=== PATIENT | female | born 1990 | race Caucasian/White ===

== ENCOUNTER 2018-08-17 05:48 | Day surgery (SDC) | payer BC ==
--- NOTE | 2018-08-16 11:04 | Pre-Procedure Note/Attestation ---
Pre-Procedure Note/Attestation Complete Prior to Procedure Planned Procedure: bilateral Procedure Narrative: 1. Bilateral tonsillectomy 2. Indirect mirror exam 3. Possible adenoidectomy Indications for Procedure Pre-Operative Diagnosis: Recurrent tonsillitis. Attestation I attest that I discussed the nature of the procedure; its benefits; risks and complications; and alternatives (and the risks and benefits of such alternatives ), prior to the procedure, with the patient (or the patient's legal food service sales representatives). I attest that, if there was a reasonable possibility of needing a blood transfusion, the patient (or the patient's legal food service sales representatives) was given the [facility] standardized written summary, pursuant to the Dimitrios Thomas Blood Safety Act ([place] Health and Safety Code # 1645, as amended). I attest that I re-evaluated the patient just prior to the surgery and that there has been no change in the patient's H&P. Sheng Mar MD Aug 16, 2018 11:04
--- NOTE | 2018-08-16 11:13 | History and Physical ---
History & Physical (DB) History & Physical History & Physical Chief Complaint: Recurrent tonsillitis Reason for Hospitalization: outpt. tonsillectomy, possible adenoidectomy History obtained from: Patient HPI: Maria E is a 28 year old female who presents with . Past Medical History:Recurrent tonsillitis, otherwise unremarkable per pt. Social History:Single, no children Diagnosis:Recurrent tonsillitis Occupational History:[employer] Smoking status:none Smokeless tobacco:none Alcohol use:social Drug use:denies control/ protection:BCP Family History:Cancer, DM Allergies:Amoxicillin-rash Medications:BCP Review of Symptoms: General ROS: no weight loss or fever Psychological ROS: no depression or mood changes, no memory loss Ophthalmic ROS: no visual changes or eye irritation ENT ROS: no nasal congestion, hearing loss, dizziness Allergy and Immunology ROS: no allergic symptoms or urticaria Hematological and Lymphatic ROS: no swollen glands, unusual bleeding or bruising Endocrine ROS: no polyuria, polydipsia, weight changes, temperature intolerance Respiratory ROS: no cough, shortness of breath, or wheezing Cardiovascular ROS: no chest pain or dyspnea on exertion Gastrointestinal ROS: no abdominal pain, change in bowel habits, or black or bloody stools Musculoskeletal ROS: no myalgias or arthralgias Neurological ROS: no TIA or stroke symptoms Dermatological ROS: no new or changing skin lesions, rashes or pruritis Physical Exam Vitals: 5.9, 145lbs BP 120/80 HR 75 RR 14 General appearance: alert, cooperative, no distress, appears stated age Head: Normocephalic, without obvious abnormality, atraumatic Eyes: conjunctivae/corneas clear. PERRL, EOM's intact. Throat: Lips, mucosa, and tongue normal. Teeth and gums normal. TONSILS 3 PLUS BILAT. Neck: supple, symmetrical, trachea midline, no adenopathy, thyroid: not enlarged, symmetric, no tenderness/mass/nodules, no carotid bruit and no JVD Lungs: clear to auscultation bilaterally Heart: regular rate and rhythm, S1, S2 normal, no murmur, click, rub or gallop Abdomen: soft, non-tender. Bowel sounds normal. No masses, no organomegaly Extremities: extremities normal, atraumatic, no cyanosis or edema Pulses: 2+ and symmetric Skin: Skin color, texture, turgor normal. No rashes or lesions Neurologic: Grossly normal Laboratories:none indicated, health under 45 yo. Preg. urine test on admission tomorrow. Estimated:45 minutes for surgery Imaging and ancillary data; hailee Assessment/Problem List:Recurrent tonsillitis Plan:Tonsillectomy Indirect mirror exam while asleep, if adenoids will remove. DVT Prophylaxis: scd Code status: full Hospital Classification declaration: Based on this initial evaluation, and depending on the patient's clinical course, I anticipate that this patient will NOT require hospitalization, rather will be discharged home as an outpt. Disposition: Once the patient is stable to leave the hospital, I anticipate the patient will likely be discharged to the following environment: HOME I spent 70 minutes on this patient's case, and minutes was dedicated to counseling and/or care coordination. Case was discussed with Time of note may not reflect time of encounter. Sheng Mar MD Aug 16, 2018 11:13
[~2018-08-17] VITALS: Ht 175.3 cm; Wt 65.8 kg
[2018-08-17] VITALS (10 sets, daily range): BP systolic 103–130; BP diastolic 56–94
[~2018-08-17 05:48] MED LIST: Dexamethasone 20mg/5ml IVP ONE; MICROGESTIN 241 EACH PO
[2018-08-17] MEDS ORDERED: Dexamethasone 4mg/ml vial ONE (07:00)
[2018-08-17] MEDS ORDERED: LR 1000ml ONE (07:00)
[2018-08-17] MEDS ORDERED: Thrombin 5000 units TOPIC ONE (07:12)
[2018-08-17] MEDS ORDERED: Lidocaine 1% 10mg/ml/Epi 0.005mg/ml 30ml vial INJ ONE (07:12)
[2018-08-17] MEDS ORDERED: Bupivacaine w/Epi 0.5% 30ml Vial INJ ONE (07:12)
[2018-08-17] MEDS ORDERED: fentaNYL 100 mcg/2 mL IV ONE (07:13)
[2018-08-17] MEDS ORDERED: Succinylcholine 20mg/ml 10ml vial ONE (07:24)
--- NOTE | 2018-08-17 07:27 | Anethesia Preoperative Eval ---
Anesthesia Pre-op PMH/ROS General Date of Evaluation: Aug 17, 2018 Time of Evaluation: 07:00 Anesthesiologist: shobha ASA Score: ASA 1 Mallampati Score Class I : Soft palate, uvula, fauces, pillars visible Class II: Soft palate, uvula, fauces visible Class III: Soft palate, base of uvula visible Class IV: Only hard plate visible Mallampati Classification: Class II Surgeon: karoline Diagnosis: tonsillitis Surgical Procedure: tonsillectomy Anesthesia History: none Family History: no anesthesia problems Allergies: Coded Allergies: LACTOSE (Verified Allergy, Intermediate, 08/16/18) ABD CRAMPS,DIARRHEA AMOXICILLIN (Verified Allergy, Unknown, 08/16/18) SKIN RASH Medications: see eMAR Patient NPO?: Yes NPO Date: Aug 17, 2018 NPO Time: 00:01 Past Medical History Cardiovascular: Denies: HTN, CAD, LA, valve dz, arrhythmia, other Pulmonary: Denies: asthma, COPD, CHELI, other Gastrointestinal/Genitourinary: Denies: GERD, CRI, ESRD, other Neurologic/Psychiatric: Denies: dementia, CVA, depression/anxiety, TIA, other Endocrine: Denies: DM, hypothyroidism, steroids, other HEENT: Denies: cataract (L), cataract (R), glaucoma, KALISPEL (L), KALISPEL (R), other Hematology/Immune: Denies: anemia, DVT, bleeding disorder, other Musculoskeletal/Integumentary: Denies: OA, RA, DJD, DDD, edema, other PSxH Narrative: wisdom teeth removal Anesthesia Pre-op Phys. Exam Physician Exam Last Vital Signs Date Time Temp Pulse Resp B/P (MAP) Pulse Ox O2 Delivery O2 Flow Rate FiO2 08/17/18 06:35 Room Air 08/17/18 06:28 97.1 74 18 124/76 100 Constitutional: NAD Neurologic: CN 2-12 intact Cardiovascular: RRR Respiratory: CTA Gastrointestinal: S/NT/ND Airway Exam Mallampati Classification 2 Mallampati Score: Class II MO: full ROM: full Dentures: no upper, no lower Anesthesia Pre-op A/P Labs Urine Test Test 08/17/18 06:10 Urine HCG, Qualitative Negative (NEGATIVE) Studies Pre-op Studies: EKG - sr Risk Assessment & Plan Plan: general Pre-Antibiotics Drug: Erythromycin Given Within 1 Hr of Incision: Yes Time Given: 07:40 Stephanie Batista CRNA Aug 17, 2018 07:27
[2018-08-17] MEDS ORDERED: NS Irrig 1000ml IRRIG ONE (07:30)
[2018-08-17] MEDS ORDERED: Metoclopramide 10mg/2ml Inj IVP PRN ×2 (07:30→08:15)
[2018-08-17] MEDS ORDERED: Acetaminophen (Non formulary) 100 ML IV ONE (07:30)
[2018-08-17] MEDS ORDERED: fentaNYL 100 mcg/2 mL IV PRN (07:30)
[2018-08-17] MEDS ORDERED: Propofol 200mg/20ml IV ONE (07:54)
[2018-08-17] MEDS ORDERED: Metoclopramide 10mg/2ml Inj ONE (07:54)
[2018-08-17] MEDS ORDERED: Lidocaine 1% MPF 10mg/ml 5ml ONE (07:54)
[2018-08-17] MEDS ORDERED: HYDROmorphone 1mg/ml Carpuject SUBQ PRN (08:15)
[2018-08-17] MEDS ORDERED: HYDROcodone/Acetamin 5/325 tab ORAL PRN (08:15)
--- NOTE | 2018-08-17 08:17 | Immediate Post-Op Evaluation ---
Immediate Post-Op Evalulation Immediate Post-Op Evalulation Procedure: tonsillectomy Date of Evaluation: Aug 17, 2018 Time of Evaluation: 08:16 IV Fluids: 500 Blood Pressure Systolic: 110 Blood Pressure Diastolic: 75 Pulse Rate: 78 Respiratory Rate: 14 O2 Sat by Pulse Oximetry: 100 Temperature (Fahrenheit): 97.6 Nausea: No - 76.3 Vomiting: No Patient Status: awake, reacts, patent Hydration Status: adequate Drug: erythromycin Given Within 1 Hr of Incision: Yes Time Given: 07:35 Stephanie Batista CRNA Aug 17, 2018 08:17
--- NOTE | 2018-08-17 08:19 | Brief Operative Note ---
Immediate Post Operative Note Operative Note Chief Complaint: Recurrent tonsillitis Pre-op Diagnosis: Recurrent tonsillitis. Procedure: Bilateral tonsillitis Post-op Diagnosis: same as pre-op Surgeon: Sheng Mar MD Director Of Public Relations: none Additional Surgeons: none Anesthesiologist: Stephanie MUÑIZ Anesthesia: general Specimen: yes - Right and left tonsil sent separately Complications: none Condition: stable Fluids: D5LR Estimated Blood Loss: volume - 10cc Drains: none Packing: none Implant(s) used?: No Sheng Mar MD Aug 17, 2018 08:19
--- NOTE | 2018-08-17 08:23 | Discharge Instructions ---
Discharge Instructions Discharge Instructions Follow up with: pt has appt for next week Diet: full liquid Resume Normal Activity?: No Activity: light activity Pneumonia Vaccine: pt refused vaccine Influenza Vaccine (Nov to Apr): pt refused vaccine Follow Up Orders pt has printed instructions which we reviewed during her pre op visit. Return to Work/School on: Aug 31, 2018 Special Instructions liquid diet-nothing acidic like orange juice. For Surgical Patients Contact your physician for: bleeding, pain, tenderness, redness, swelling, yellowish discharge in the op. site For Congestive Heart Failure Reminder Report to your physician any weight gain of 5 pounds or more in one week. Sheng Mar MD Aug 17, 2018 08:23
--- NOTE | 2018-08-17 09:58 | 48 Hour Post Anesthesia Eval ---
Post Anesthesia Evaluation Procedure: tonsillectomy Date of Evaluation: Aug 17, 2018 Time of Evaluation: 09:58 Blood Pressure Systolic: 123 0: 67 Pulse Rate: 70 Respiratory Rate: 14 O2 Sat by Pulse Oximetry: 98 Airway: patent Nausea: No Vomiting: No Hydration Status: adequate Cardiopulmonary Status: stable Mental Status/LOC: patient returned to baseline Follow-up Care/Observations: na Post-Anesthesia Complications: none Follow-up care needed: N/A Stephanie Batista CRNA Aug 17, 2018 09:58
[2018-08-17] MEDS ORDERED: Erythromycin Inj 500 MG in NS 110 ML IVPB ONE (14:00)
--- NOTE | 2018-08-17 15:30 | Operative Note - Dictated ---
DATE OF OPERATION: 08/17/2018 SURGEON: Sheng Mar M.D. PLOW SHAKER: None. ANESTHESIOLOGIST: MARY KAY Brown. ANESTHESIA: Oral endotracheal as well as 12 mL 1% lidocaine, 1000 epinephrine at the beginning of the case and bupivacaine 6 mL 0.5% 1:200,000 at the end of the case. INDICATION FOR SURGERY: Recurrent tonsillitis. PREOPERATIVE DIAGNOSIS: Recurrent tonsillitis. POSTOPERATIVE DIAGNOSIS: Recurrent tonsillitis. FINDINGS: 3+ tonsils bilaterally. There was some pus-like material in the left tonsil. PROCEDURE: 1. Bilateral tonsillectomy. 2. Indirect mirror exam. TECHNIQUE: The patient prepped and draped in usual manner. A time-out was performed and all agreed as to the procedures to be done and equipment required for those procedures. Initially, a McIvor mouth gag was placed. Mouth was open and suspended. I injected the aforementioned 1% lidocaine, 1000 epinephrine in either tonsillar beds. I then proceeded to pass a red rubber catheter through the right nostril into the mouth pulling up the soft palate. Indirect mirror exam utilized to evaluate the posterior nasopharynx, which was open. No adenoidal hypertrophy. Please note, this meant that I would not be doing an adenoidectomy, which was a possibility on the consent. I then turned my attention to the right tonsil grabbing it with an Allis and pulling it medially. From an anterior superior to posterior inferior position, I dissected with electrocautery at a setting of 12. The tonsil was then sent for permanent section in formalin. I then turned my attention to the left tonsil. Similar procedure grasping the superior pole of the left tonsil with an Allis pulling it medially and inferiorly where I dissected at a setting of 12 with electrocautery in anterior superior to posterior inferior position. I stayed as close to the tonsillar capsule as I could. I then put down the McIvor mouth gag to release any tension across blood vessels to see if there was any bleeding. When I put it back up a minute later, there was not any bleeding. I then injected with bupivacaine noted above in either tonsillar bed. I then once again put down the McIvor mouth gag closing the mouth for a minute and then reopening it. There was no bleeding. Thrombin was dropped on the tonsillar beds a total of 3 mL between the two tonsillar beds. Airway was suctioned. COUNTS: Sponge and needle count was correct. ESTIMATED BLOOD LOSS: 10 mL. COMPLICATIONS: None. DRAINS: None. The patient was extubated, alert, awake, and stable in the operating room prior to transfer to the recovery room. I did speak with her father. Sheng Mar M.D. DR: MARIA DE JESUS JOB#: [id number] CC:
== END 2018-08-17 10:25 | disposition home or self-care (01) ==
LOC: SUR 05:48
DX: J03.91 Acute recurrent tonsillitis, unspecified (principal); Z91.011 Allergy to milk products; Z88.0 Allergy status to penicillin
CPT/HCPCS: 42826; 81025; J0330; J1100; J1364; J2405; J2704; J2765; J3010; 94003; 94150